=== PATIENT | male | born 1950 | race Caucasian/White ===

== ENCOUNTER 2018-07-18 20:40 | Emergency (ER) | payer MEDICARE ==
[2018-07-18] MEDS: NITROGLYCERIN 0.4 MG 25 EA TAB SL ONE ×2 (21:00→21:39)
[2018-07-18 21:01] VITALS: TEMP 97.8
--- NOTE | 2018-07-18 21:05 | RAD ---
EXAM DESCRIPTION: Chest,1 View CLINICAL HISTORY:68 years Male, chest pain Comparison: November 25, 2014 FINDINGS: No focal lung consolidation. No pleural effusion. No pneumothorax. Prominent cardiac silhouette. Median sternotomy wires and atrial appendage closure device noted. No acute osseous abnormality. Soft tissues are unremarkable. IMPRESSION: No focal lung consolidation. Prominent cardiac silhouette. Electronically signed by: Blaise Phipps MD 07/18/2018 9:04 PM CDT
--- NOTE | 2018-07-18 22:39 | ED.PDOC ---
History of Present Illness - General Chief Complaint: Chest Pain/CA Stated Complaint: chest pressure and nose bleed Time Seen by Provider: 07/18/18 21:46 Source: patient Exam Limitations: no limitations - History of Present Illness Initial Comments: roberto Penny 68 y/o male came to ER initially with sharp mid back pain followed by chest pressure ,sob and nosebleed while resting on the couch tonight.Had recent CABG at [facility] for uncontolled a.fib on June 25 then discharge to rehab July 02 - then went home doing well until tonight.He was given a dose of NTG-0.04mg SL relieved his symptoms.no cough ,no hemoptysis or hematemesis.Recently had check up with 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 Timing/Duration: 1-3 hours Severity: moderate Location: back Activities at Onset: rest Prior Chest Pain/Cardiac Workup: other - CABG Improving Factors: nothing Worsening Factors: nothing Nitro Today/Relief: 0.4 mg x 1 Associated Symptoms: other - see hpi Allergies/Adverse Reactions: Allergies Penicillins Allergy (Verified 04/08/15 14:04) Home Medications: Ambulatory Orders Amlodipine Besylate [Norvasc] 10 mg PO DAILY 04/08/15 Lisinopril 20 mg PO BID 04/08/15 Metoprolol Tartrate 150 mg PO DAILY 04/08/15 Pantoprazole Tablet [Protonix] 40 mg PO DAILY 04/08/15 Aspirin [Aspirin Adult Low Dose] 81 mg PO QAM #100 tab 07/27/15 Furosemide Tab [Lasix Tab] 20 mg PO QAM #30 tab 07/27/15 Meclizine HCl 25 mg PO TID PRN #30 chw 07/27/15 Potassium Chloride [Micro-K] 10 meq PO QAM #30 cap 07/27/15 Review of Systems - Review of Systems Constitutional: States: no symptoms reported EENTM: States: see HPI, other - nosebleed Respiratory: States: no symptoms reported Cardiology: States: see HPI Gastrointestinal/Abdominal: States: no symptoms reported Genitourinary: States: no symptoms reported Past Medical History (General) - Patient Medical History Hx Stroke: Yes Hx Cardiac Disorders: Yes - CABG procedure 06/25 Hx Congestive Heart Failure: No Hx Hypertension: Yes Hx Diabetes: No Hx Gastroesophageal Reflux: Yes Hx Cancer: No Hx Hepatitis C: No Hx Other PMH: Yes - bleeding ulcer gastric-EGD/colonoscopy Surgical History: coronary bypass surgery - Vaccination History Hx Tetanus, Diphtheria Vaccination: No Hx Influenza Vaccination: No Hx Pneumococcal Vaccination: No - Social History Hx Tobacco Use: No Hx Alcohol Use: Yes - occ Hx Substance Use: No Hx Substance Use Treatment: No Hx Depression: No Hx Physical Abuse: No Hx Emotional Abuse: No - Activities of Daily Living Patient Lives Alone: No - Triage Comment ED Triage Comment: PT spouses stated pt stated c/o chest tightness and pressure radiating to his back and becoming increasingly short of breath and unable to stay comfortable. Pt had CABGx5 procedure done on 06/25. Pt we released from hospital on Mon. 07/13. Pt stated he was at rest when pain came on suddenly and he started having a nosebleed. Family Medical History - Family History Father Family History: Unknown Living Status: Unknown Hx Cardiac Disease: Yes - dad,brother Hx Family Cancer: Yes - leukemia-mom Physical Exam - Physical Exam General Appearance: Alert, Anxious, Comfortable, No apparent distress Eyes, Ears, Nose, Throat Exam: PERRL/EOMI, TMs normal, pharynx normal, other - dried blood right nostril no active bleeding noted Neck: non-tender, full range of motion, supple, normal inspection Respiratory: chest non-tender, lungs clear, normal breath sounds, other - well healed sternal incision Cardiovascular/Chest: normal peripheral pulses, regular rate, rhythm, no murmur Peripheral Pulses: radial,right: 2+, radial,left: 2+ Gastrointestinal/Abdominal: non tender, soft Extremity: no pedal edema, no calf tenderness Neurologic: alert, oriented x 3 Skin Exam: normal color, warm/dry Progress - Progress Progress: 07/18/18 22:44 Vital Signs - 8 hr 07/18/18 07/18/18 07/18/18 20:51 20:58 21:39 Temperature 97.8 F Pulse Rate 59 L 61 Pulse Rate [ 59 L 61 left] Respiratory 24 24 Rate Blood Pressure 176/91 154/94 [left] O2 Sat by Pulse 100 100 100 Oximetry 07/19/18 00:[address] Lundberg patient computer forensics investigator all lab test,,EKG,CXR,CT chest result no acute findings and relief of his symptoms after nitroglycerin advised to sent patient home and to call his office in am during office hours or come back to er if symptoms worsen;his nosebleed stopped;thoracic/chest pressure relived after taking one NTG;denies symptoms on discharge 07/19/18 00:17 07/19/18 00:22 - Results/Orders Results/Orders: 07/18/18 20:50 IV Care:Saline Lock per Protoc QSHIFT Telemetry .ONCE EKG Stat Pulse Ox Stat Laboratory Results - last 24 hr 07/18/18 07/18/18 07/18/18 21:04 21:04 Unknown WBC 11.4 H RBC 3.28 L Hgb 9.8 L Hct 29.9 L MCV 91.0 MCH 29.8 MCHC 32.6 L RDW 14.6 H Plt Count 304 MPV 7.7 Absolute Neuts (auto) 7.90 H Absolute Lymphs (auto) 1.20 Absolute Monos (auto) 1.10 H Absolute Eos (auto) 1.10 H Absolute Basos (auto) 0.10 Neutrophils % 69.8 Lymphocytes % 10.5 L Monocytes % 9.3 H Eosinophils % 9.6 H Basophils % 0.8 PT 12.4 H INR 1.24 H PTT (SP) 32.5 H D-Dimer, Quantitative 3.79 H* Sodium 134 L Potassium 4.8 Chloride 99 L Carbon Dioxide 27 Anion Gap 12.8 BUN 42 H Creatinine 2.08 H BUN/Creatinine Ratio 20.2 H Random Glucose 129 H Serum Osmolality 280.4 Calcium 9.2 Magnesium 2.2 Total Bilirubin 0.8 Direct Bilirubin 0.3 H Indirect Bilirubin 0.5 AST 26 ALT 24 Alkaline Phosphatase 112 Creatine Kinase 50 CK-MB (CK-2) 1.1 CK-MB (CK-2) % Not Reportable Troponin I 0.03 B-Natriuretic Peptide 442.0 H* Serum Total Protein 7.9 Albumin 3.5 TSH 4.20 - EKG/XRAY/CT EKG: Sinus, nonspecific ST T wave Chg Comments: HR -61 XRAY: chest - no acute changes CT Ordered: Yes - chest ct-post op (CABG) changes nothing acute /radiologist Departure - Departure Clinical Impression: Chest tightness or pressure, Status post coronary artery bypass graft, Nosebleed, Anticoagulant long-term use Thoracic back pain Qualifiers: Chronicity: unspecified Back pain laterality: unspecified Qualified Code(s): M54.6 - Pain in thoracic spine Time of Disposition: 00:20 Disposition: Discharge to Home or Self Care Condition: Fair Departure Forms: ED Discharge - Pt. Copy, Patient Portal Self Enrollment Instructions: Coronary Artery Bypass Grafting (DC), Recovery After Coronary Artery Bypass Graft Surgery (CABG), Coronary Artery Bypass Grafting Referrals: Ben Murillo MD [Primary Care Provider] - 1-2 Weeks Home Medications: Ambulatory Orders Amlodipine Besylate [Norvasc] 10 mg PO DAILY 04/08/15 Lisinopril 20 mg PO BID 04/08/15 Metoprolol Tartrate 150 mg PO DAILY 04/08/15 Pantoprazole Tablet [Protonix] 40 mg PO DAILY 04/08/15 Aspirin [Aspirin Adult Low Dose] 81 mg PO QAM #100 tab 07/27/15 Furosemide Tab [Lasix Tab] 20 mg PO QAM #30 tab 07/27/15 Meclizine HCl 25 mg PO TID PRN #30 chw 07/27/15 Potassium Chloride [Micro-K] 10 meq PO QAM #30 cap 07/27/15 Additional Instructions: Return to ER as needed;Continue with all home medications
--- NOTE | 2018-07-18 23:05 | CT ---
PROCEDURE: Chest w/o Contrast CLINICAL HISTORY: 68 years Male pain COMPARISON: None. TECHNIQUE: Contiguous axial images obtained through the chest without IV contrast. Reformatted images obtained. This exam was performed according to our department optimization program which includes automated exposure control, adjustment of the mA and/or kv according to patient size and/or use of iterative reconstruction technique. FINDINGS: Calcification in aorta and in the coronary arteries. There is trace pericardial fluid or thickening. Median sternotomy is present. This appears recent as there is adjacent fluid in the retrosternal retromanubrial space and in the anterior soft tissues and no bony fusion is noted there is no evidence of pneumothorax. Areas of linear atelectasis are present in the lung bases bilaterally. Small amount of stranding is present along the extrapleural space. No pleural fluid collection is noted. No consolidating infiltrates or pleural effusions. IMPRESSION: Postsurgical changes suggesting relatively recent median sternotomy with a small amount of soft tissue stranding anteriorly as well as fluid in the retrosternal retromanubrial space Small amount of pericardial fluid or thickening Minimal basilar atelectasis No consolidation or pneumothorax noted Electronically signed by: Purnima Jordan MD 07/18/2018 11:04 PM CDT
[2018-07-19 00:47] VITALS: O2SAT 99
[2018-07-19 00:50] VITALS: BP 123/68
== END 2018-07-19 00:40 | disposition home or self-care (01) ==
LOC: ER 20:40
DX: R07.89 Other chest pain (principal); R04.0 Epistaxis; M54.6 Pain in thoracic spine; K21.9 Gastro-esophageal reflux disease without esophagitis; I10 Essential (primary) hypertension; Z95.1 Presence of aortocoronary bypass graft; Z86.73 Personal history of transient ischemic attack (TIA), and cerebral infarction without residual deficits; Z79.01 Long term (current) use of anticoagulants; Z87.11 Personal history of peptic ulcer disease

== ENCOUNTER → 2018-10-22 | Outpatient (CLI) | payer MEDICARE | LOC: LAB.O 07:31 | PROVIDERS: ATTEND Internal Medicine Medical Oncology | DX: I25.10 Atherosclerotic heart disease of native coronary artery without angina pectoris (principal); E78.5 Hyperlipidemia, unspecified; D64.9 Anemia, unspecified; Z95.1 Presence of aortocoronary bypass graft ==